=== PATIENT | male | born 1955 | race Caucasian/White ===

== ENCOUNTER 2023-10-21 14:00 | Outpatient (RCR) | payer MEDICARE, SELFPAY ==
--- NOTE | 2023-06-23 11:20 | URNOTE ---
Addendum entered by Marion Castellanos RN 06/23/23 11:26: Auth #[id number]. Original Note: Request received for authorization for Aranesp (Darbepoetin bear) ([id number]). Prior authorization is approved by [facility] on behalf of [facility] from date range: 06/22/2023 to 12/22/2023.
[2023-06-24 15:17] LABS: Basophils Percent Auto 2.3 % (0.0-3.0); Hemoglobin* 9.7 gm/dL (13.5-17.5); Immature Granulocytes Pct Auto 0.7 %; Lymphocytes Percent Auto 31.8 % (20-44); Mean Corpuscular HGB Conc 30 gm/dL (32-36); Mean Corpuscular Hemoglobin 26 pg (26-34); Mean Corpuscular Volume 87 fL (80-100); Neutrophils Percent Auto 44.2 % (42.0-72.0); Platelet Count* 177 K/uL (140-440); RDW Coefficient of Variation % 18.2 % (11.5-15.5); Red Blood Count 3.67 m/uL (4.30-5.90); White Blood Count* 4.28 K/uL (4.50-11.00)
[2023-06-24 15:19] VITALS: BP 120/77; PULSE 60; RESP 16; TEMP 35.8; O2SAT 100
[2023-06-24 15:31] LABS: Slide Review Reflex No
[2023-06-24] MEDS: DARBEPOETIN ALFA IN POLYSORBAT 500 MCG/ML SYRINGE SUBCUT (15:43)
[2023-07-01 14:34] VITALS: BP 136/74; PULSE 78; RESP 16; TEMP 36.3; O2SAT 100
[2023-07-01 14:54] LABS: Basophils Percent Auto 1.7 % (0.0-3.0); Hematocrit 27.4 % (37.0-53.0); Hemoglobin* 8.3 gm/dL (13.5-17.5); Immature Granulocytes Pct Auto 1.1 %; Lymphocytes Percent Auto 38.2 % (20-44); Mean Corpuscular HGB Conc 30 gm/dL (32-36); Mean Corpuscular Hemoglobin 26 pg (26-34); Mean Corpuscular Volume 86 fL (80-100); Monocytes Percent Auto 21.9 % (0.0-11.0); Neutrophils Percent Auto 37.1 % (42.0-72.0); Platelet Count* 177 K/uL (140-440); Red Blood Count 3.17 m/uL (4.30-5.90); White Blood Count* 3.56 K/uL (4.50-11.00)
[2023-07-01 15:26] LABS: Slide Review Reflex Yes
[2023-07-01 15:28] LABS: Slide Review Acceptable Review (Acceptable)
--- NOTE | 2023-07-01 15:46 | ONC.NURNOTE ---
Patient here for labs. HBG 8.3. Ordered 1 unit irradiated blood for tomorrow per parameters of Dr. Clark. Faxed labs to Dr. Clark.
[2023-07-02 13:25] VITALS: BP 128/47; PULSE 59; RESP 22; TEMP 36.3; O2SAT 100
[2023-07-02 13:43] VITALS: BP 112/56; PULSE 54; RESP 20; TEMP 36.8; O2SAT 100
[2023-07-02 14:28] VITALS: BP 121/63; PULSE 54; RESP 20; TEMP 36.4; O2SAT 100
[2023-07-02 15:30] VITALS: BP 144/63; PULSE 54; RESP 20; TEMP 35.9; O2SAT 100
[2023-07-02 16:05] VITALS: BP 127/55; PULSE 54; RESP 24; TEMP 36.2; O2SAT 100
[2023-07-08 15:31] LABS: Basophils Percent Auto 1.7 % (0.0-3.0); Hematocrit 27.5 % (37.0-53.0); Hemoglobin* 8.6 gm/dL (13.5-17.5); Lymphocytes Percent Auto 34.7 % (20-44); Mean Corpuscular HGB Conc 31 gm/dL (32-36); Mean Corpuscular Hemoglobin 27 pg (26-34); Mean Corpuscular Volume 86 fL (80-100); Monocytes Percent Auto 23.1 % (0.0-11.0); Neutrophils Percent Auto 39.5 % (42.0-72.0); Platelet Count* 142 K/uL (140-440); RDW Coefficient of Variation % 16.9 % (11.5-15.5); Red Blood Count 3.21 m/uL (4.30-5.90); White Blood Count* 3.03 K/uL (4.50-11.00)
[2023-07-08 15:35] LABS: Slide Review Reflex No
--- NOTE | 2023-07-08 15:41 | ONC.NURNOTE ---
Notified pt of Hgb 8.6 and need for 1unit PRBC transfsion tomorrow. Order placed for irradiated blood; BBK updated. Pt scheduled to come at 1300.
[2023-07-09 13:02] VITALS: BP 120/64; PULSE 70; RESP 17; TEMP 37.1; O2SAT 100
[2023-07-09 13:26] VITALS: BP 120/64; PULSE 70; RESP 24; TEMP 37.1; O2SAT 100
[2023-07-09 13:40] VITALS: BP 114/60; PULSE 60; RESP 24; TEMP 36.9; O2SAT 100
--- NOTE | 2023-07-09 14:05 | ONC.NURNOTE ---
Spoke with Dr. Clark's nurse at [facility]. 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
[2023-07-09 14:20] VITALS: BP 109/50; PULSE 58; RESP 14; TEMP 36.1; O2SAT 100
[2023-07-09 15:25] VITALS: BP 122/56; PULSE 62; RESP 15; TEMP 36.1; O2SAT 94
[2023-07-09 16:00] VITALS: BP 120/50; PULSE 60; RESP 14; TEMP 36.1; O2SAT 94
[2023-07-15 14:52] LABS: Basophils Percent Auto 1.9 % (0.0-3.0); Hematocrit 29.2 % (37.0-53.0); Hemoglobin* 9.2 gm/dL (13.5-17.5); Immature Granulocytes Pct Auto 0.9 %; Lymphocytes Percent Auto 35.3 % (20-44); Mean Corpuscular HGB Conc 32 gm/dL (32-36); Mean Corpuscular Hemoglobin 27 pg (26-34); Mean Corpuscular Volume 87 fL (80-100); Monocytes Percent Auto 22.2 % (0.0-11.0); Neutrophils Percent Auto 39.7 % (42.0-72.0); Platelet Count* 187 K/uL (140-440); RDW Coefficient of Variation % 15.8 % (11.5-15.5); Red Blood Count 3.37 m/uL (4.30-5.90)
[2023-07-15 15:11] LABS: Slide Review Reflex Yes
[2023-07-15 15:12] LABS: Slide Review Acceptable Review (Acceptable)
--- NOTE | 2023-07-16 09:04 | PC.NURSE ---
Late Entry: Pt was present at [facility] on 07/15/2023 for labs. Pt notified of results. No blood transfusion needed. Wednesday appt cancelled.
[2023-07-22 14:58] LABS: Eosinophils Percent Auto 0.3 % (0.0-7.0); Hematocrit 24.8 % (37.0-53.0); Immature Granulocytes Pct Auto 1.2 %; Lymphocytes Percent Auto 35.2 % (20-44); Mean Corpuscular HGB Conc 32 gm/dL (32-36); Mean Corpuscular Hemoglobin 27 pg (26-34); Mean Corpuscular Volume 86 fL (80-100); Monocytes Percent Auto 26.2 % (0.0-11.0); Neutrophils Percent Auto 35.1 % (42.0-72.0); Platelet Count* 191 K/uL (140-440); RDW Coefficient of Variation % 15.7 % (11.5-15.5); Red Blood Count 2.89 m/uL (4.30-5.90); White Blood Count* 3.47 K/uL (4.50-11.00)
[2023-07-22 15:14] LABS: Hemoglobin* 7.9 gm/dL (13.5-17.5); Slide Review Reflex Yes
[2023-07-22 15:15] LABS: Slide Review Acceptable Review (Acceptable)
[2023-07-23] VITALS (10 sets, daily range): BP systolic 93–127; BP diastolic 48–71; PULSE 53–69; RESP 14–16; TEMP 36.1–36.9; O2SAT 98–100
[2023-07-29 15:18] LABS: Basophils Percent Auto 1.5 % (0.0-3.0); Hematocrit 28.7 % (37.0-53.0); Hemoglobin* 9.1 gm/dL (13.5-17.5); Immature Granulocytes Pct Auto 1.5 %; Lymphocytes Percent Auto 42.2 % (20-44); Mean Corpuscular HGB Conc 32 gm/dL (32-36); Mean Corpuscular Hemoglobin 27 pg (26-34); Mean Corpuscular Volume 85 fL (80-100); Monocytes Percent Auto 22.8 % (0.0-11.0); Platelet Count* 155 K/uL (140-440); RDW Coefficient of Variation % 15.4 % (11.5-15.5); Red Blood Count 3.36 m/uL (4.30-5.90)
[2023-07-29 16:20] LABS: Slide Review Reflex Yes
[2023-07-29 16:21] LABS: White Blood Count* 2.39 K/uL (4.50-11.00)
[2023-07-29 16:29] LABS: Slide Review Acceptable Review (Acceptable)
[2023-08-05 14:42] LABS: Basophils Percent Auto 1.4 % (0.0-3.0); Hematocrit 25.7 % (37.0-53.0); Hemoglobin* 8.2 gm/dL (13.5-17.5); Immature Granulocytes Pct Auto 1.8 %; Lymphocytes Percent Auto 47.7 % (20-44); Mean Corpuscular HGB Conc 32 gm/dL (32-36); Mean Corpuscular Hemoglobin 27 pg (26-34); Mean Corpuscular Volume 85 fL (80-100); Monocytes Percent Auto 19.8 % (0.0-11.0); Neutrophils Percent Auto 29.3 % (42.0-72.0); Platelet Count* 149 K/uL (140-440); RDW Coefficient of Variation % 15.4 % (11.5-15.5); Red Blood Count 3.01 m/uL (4.30-5.90); White Blood Count* 2.83 K/uL (4.50-11.00)
[2023-08-05 15:07] LABS: Slide Review Acceptable Review (Acceptable); Slide Review Reflex Yes
[2023-08-06 11:41] VITALS: BP 125/69; PULSE 66; RESP 16; TEMP 36.6; O2SAT 99
[2023-08-06 12:17] VITALS: BP 125/69; PULSE 66; RESP 16; TEMP 36.6; O2SAT 99
[2023-08-06 12:38] VITALS: BP 116/50; PULSE 60; RESP 24; TEMP 36.3; O2SAT 100
[2023-08-06 13:23] VITALS: BP 126/82; PULSE 60; RESP 16; TEMP 36.8; O2SAT 100
[2023-08-06 14:39] VITALS: BP 119/53; PULSE 58; RESP 20; TEMP 36.8; O2SAT 100
[2023-08-06 15:02] VITALS: BP 122/72; PULSE 61; RESP 18; TEMP 36.8; O2SAT 100
--- NOTE | 2023-08-12 15:26 | ONC.NURNOTE ---
Patient did not show for lab appointment today. Called patient and he stated that he is in the hospital at [facility] in [place]. He plans to come in next and asked if we can make him this appointment. This was completed. Patient asked if he could come in early next week if needed. Fitness Services Manager stated that if it is an additional lab for next week, we would need a one time order but if it is replacing the appointment for , we could try and accommodate this. Patient verbally understood and stated he would keep us updated.
[2023-08-19 15:47] LABS: Basophils Percent Auto 1.1 % (0.0-3.0); Hematocrit 30.2 % (37.0-53.0); Hemoglobin* 9.7 gm/dL (13.5-17.5); Immature Granulocytes Pct Auto 3.4 %; Lymphocytes Percent Auto 44.7 % (20-44); Mean Corpuscular HGB Conc 32 gm/dL (32-36); Mean Corpuscular Hemoglobin 27 pg (26-34); Mean Corpuscular Volume 85 fL (80-100); Monocytes Percent Auto 20.6 % (0.0-11.0); Neutrophils Percent Auto 30.2 % (42.0-72.0); Platelet Count* 127 K/uL (140-440); RDW Coefficient of Variation % 14.6 % (11.5-15.5); Red Blood Count 3.56 m/uL (4.30-5.90); White Blood Count* 2.62 K/uL (4.50-11.00)
[2023-08-19 15:48] LABS: Slide Review Reflex Yes
--- NOTE | 2023-08-19 16:00 | ONC.NURNOTE ---
Patient called with lab results. No need for transfusion tomorrow and patient aware. Labs were faxed to Dr. Clark. Patient scheduled next for more labs.
[2023-08-19 16:55] LABS: Slide Review Acceptable Review (Acceptable)
[2023-08-26 14:43] LABS: Basophils Percent Auto 1.2 % (0.0-3.0); Hematocrit 26.6 % (37.0-53.0); Hemoglobin* 8.6 gm/dL (13.5-17.5); Lymphocytes Percent Auto 44.7 % (20-44); Mean Corpuscular HGB Conc 32 gm/dL (32-36); Mean Corpuscular Hemoglobin 27 pg (26-34); Mean Corpuscular Volume 85 fL (80-100); Monocytes Percent Auto 28.5 % (0.0-11.0); Neutrophils Percent Auto 23.6 % (42.0-72.0); Platelet Count* 126 K/uL (140-440); RDW Coefficient of Variation % 14.4 % (11.5-15.5); Red Blood Count 3.14 m/uL (4.30-5.90); White Blood Count* 2.53 K/uL (4.50-11.00)
[2023-08-26 15:21] LABS: Slide Review Reflex No
--- NOTE | 2023-08-26 15:48 | ONC.NURNOTE ---
Faxed lab results to Dr. Clark. Ordered 1 unit of irradiated packed red blood cells. Called patient with results and plan. MENU PLANNER reviewed hospitalization from 2 weeks ago at [facility] and no concerns with moving forward with transfusion tomorrow.
[2023-08-27 13:17] VITALS: BP 113/60; PULSE 61; RESP 16; TEMP 36.1; O2SAT 100
[2023-08-27 13:34] VITALS: BP 113/60; PULSE 61; RESP 18; TEMP 36.1; O2SAT 100
[2023-08-27 13:50] VITALS: BP 103/47; PULSE 61; RESP 16; TEMP 36.7; O2SAT 100
[2023-08-27 14:35] VITALS: BP 107/51; PULSE 54; RESP 18; TEMP 36.2; O2SAT 100
[2023-08-27 15:56] VITALS: BP 116/63; PULSE 52; RESP 16; TEMP 36.1
[2023-08-27 16:25] VITALS: BP 118/64; PULSE 53; RESP 18; TEMP 36.6; O2SAT 100
--- NOTE | 2023-08-27 16:39 | ONC.NURNOTE ---
Pt chose to leave 30 min after transfusion completed. Reviewed recent policy change recommending 1 hr monitoring following completion of blood transfusion. Pt verbalizes understanding and chooses to leave 30 min after, citing that when he had transfusions at [facility], he was able to leave immediately when blood finished.
[2023-09-02 14:55] LABS: Basophils Percent Auto 1.6 % (0.0-3.0); Hematocrit 27.5 % (37.0-53.0); Hemoglobin* 8.8 gm/dL (13.5-17.5); Immature Granulocytes Pct Auto 2.4 %; Lymphocytes Percent Auto 43.3 % (20-44); Mean Corpuscular HGB Conc 32 gm/dL (32-36); Mean Corpuscular Hemoglobin 27 pg (26-34); Mean Corpuscular Volume 85 fL (80-100); Monocytes Percent Auto 26.7 % (0.0-11.0); Platelet Count* 76 K/uL (140-440); RDW Coefficient of Variation % 14.3 % (11.5-15.5); Red Blood Count 3.25 m/uL (4.30-5.90); White Blood Count* 2.47 K/uL (4.50-11.00)
[2023-09-02 15:00] LABS: Slide Review Reflex No
--- NOTE | 2023-09-02 16:26 | ONC.NURNOTE ---
patient called with results of cbc. he will be in tomorrow for 1 u Irr. PRBC. type and crossed today.
[2023-09-03 13:15] VITALS: BP 107/72; PULSE 65; RESP 16; TEMP 36.8; O2SAT 100
[2023-09-03 13:33] VITALS: BP 107/72; PULSE 66; RESP 16; TEMP 36.8; O2SAT 100
[2023-09-03 13:45] VITALS: BP 120/51; PULSE 60; RESP 18; TEMP 37.1
[2023-09-03 13:54] VITALS: BP 113/67; PULSE 63; RESP 16; TEMP 36.9; O2SAT 100
[2023-09-03 15:29] VITALS: BP 120/51; PULSE 57; RESP 18; TEMP 36.6
[2023-09-03 15:44] VITALS: BP 128/68; PULSE 60; RESP 18; TEMP 36.6; O2SAT 100
--- NOTE | 2023-09-03 15:58 | ONC.NURNOTE ---
Patient refuses to wait the 1 hour post transfusion stating he doesn't have to wait in [place] at all. He waited 20 mins post transfusion
[2023-09-08 15:01] VITALS: BP 129/67; PULSE 71; RESP 22; O2SAT 100
[2023-09-08 15:09] LABS: Basophils Percent Auto 0.8 % (0.0-3.0); Hematocrit 26.1 % (37.0-53.0); Hemoglobin* 8.5 gm/dL (13.5-17.5); Immature Granulocytes Pct Auto 1.9 %; Lymphocytes Percent Auto 55.2 % (20-44); Mean Corpuscular HGB Conc 33 gm/dL (32-36); Mean Corpuscular Hemoglobin 27 pg (26-34); Mean Corpuscular Volume 84 fL (80-100); Monocytes Percent Auto 24.9 % (0.0-11.0); Neutrophils Percent Auto 17.2 % (42.0-72.0); Platelet Count* 58 K/uL (140-440); RDW Coefficient of Variation % 14.3 % (11.5-15.5); Red Blood Count 3.12 m/uL (4.30-5.90); White Blood Count* 2.61 K/uL (4.50-11.00)
--- NOTE | 2023-09-08 15:50 | ONC.NURNOTE ---
Called patient with lab results. Patient will come on 09/09 at 11:45 fo 1 unit irradiated blood. This was ordered. Faxed results to Dr. Clark.
[2023-09-08 16:26] LABS: Slide Review Reflex Yes
[2023-09-16 14:39] LABS: Basophils Percent Auto 1.2 % (0.0-3.0); Hemoglobin* 10.1 gm/dL (13.5-17.5); Immature Granulocytes Pct Auto 5.8 %; Lymphocytes Percent Auto 28.6 % (20-44); Mean Corpuscular HGB Conc 33 gm/dL (32-36); Mean Corpuscular Hemoglobin 28 pg (26-34); Mean Corpuscular Volume 85 fL (80-100); Monocytes Percent Auto 33.2 % (0.0-11.0); Neutrophils Percent Auto 31.2 % (42.0-72.0); Platelet Count* 83 K/uL (140-440); RDW Coefficient of Variation % 15.2 % (11.5-15.5); Red Blood Count 3.67 m/uL (4.30-5.90); White Blood Count* 3.43 K/uL (4.50-11.00)
[2023-09-16 15:04] LABS: Slide Review Reflex Yes
[2023-09-16 15:05] LABS: Slide Review Acceptable Review (Acceptable)
--- NOTE | 2023-09-16 15:43 | ONC.NURNOTE ---
Patient in clinic today for Hgb check. Hgb resulted at 10.1. RN called Josh with his results and to update him that he will not need a transfusion tomorrow. Patient not currently scheduled for next week. RN confirmed patient wants labs on with possible blood on Wednesday. RN added patient to schedule for 09/22 and 09/23. Lab results printed and faxed to Dr. Clark.
[2023-09-23 14:53] LABS: Basophils Percent Auto 1.1 % (0.0-3.0); Hematocrit 29.3 % (37.0-53.0); Hemoglobin* 9.5 gm/dL (13.5-17.5); Immature Granulocytes Pct Auto 6.3 %; Lymphocytes Percent Auto 11.1 % (20-44); Mean Corpuscular HGB Conc 32 gm/dL (32-36); Mean Corpuscular Hemoglobin 28 pg (26-34); Mean Corpuscular Volume 85 fL (80-100); Monocytes Percent Auto 57.4 % (0.0-11.0); Neutrophils Percent Auto 24.1 % (42.0-72.0); Platelet Count* 61 K/uL (140-440); RDW Coefficient of Variation % 15.2 % (11.5-15.5); Red Blood Count 3.46 m/uL (4.30-5.90)
[2023-09-23 15:35] LABS: Slide Review Reflex No
--- NOTE | 2023-09-23 16:04 | ONC.NURNOTE ---
Addendum entered by Janet Carroll RN 09/23/23 16:07: Pt notified of labs today. Original Note: Labs faxed to hematology at [place]. No transfusion needed on 09/24/23.
[2023-09-30 14:51] LABS: Basophils Percent Auto 1.1 % (0.0-3.0); Hematocrit 24.6 % (37.0-53.0); Immature Granulocytes Pct Auto 6.1 %; Lymphocytes Percent Auto 45.6 % (20-44); Mean Corpuscular HGB Conc 33 gm/dL (32-36); Mean Corpuscular Hemoglobin 27 pg (26-34); Mean Corpuscular Volume 84 fL (80-100); Monocytes Percent Auto 33.6 % (0.0-11.0); Neutrophils Percent Auto 13.6 % (42.0-72.0); Platelet Count* 65 K/uL (140-440); RDW Coefficient of Variation % 15.7 % (11.5-15.5); Red Blood Count 2.94 m/uL (4.30-5.90); White Blood Count* 3.75 K/uL (4.50-11.00)
[2023-09-30 15:18] LABS: Slide Review Reflex Yes
[2023-09-30 15:19] LABS: Slide Review Acceptable Review (Acceptable)
--- NOTE | 2023-09-30 16:25 | ONC.NURNOTE ---
Called patient to update him that his Hgb today is 8.0, per his orders he needs 2 units of blood tomorrow. Patient's appt time moved to 10 am to accommodate the 2nd unit. Patient verbalized understanding. Lab results faxed to Dr. Clark.
[2023-10-01] VITALS (10 sets, daily range): BP systolic 104–123; BP diastolic 47–68; PULSE 63–70; RESP 14–24; TEMP 36.6–37; O2SAT 96–99
[2023-10-01] MEDS: 0.9 % SODIUM CHLORIDE 250 ml IV (10:20)
[2023-10-07 15:45] LABS: Basophils Percent Auto 1.2 % (0.0-3.0); Hematocrit 28.2 % (37.0-53.0); Hemoglobin* 9.2 gm/dL (13.5-17.5); Immature Granulocytes Pct Auto 7.4 %; Lymphocytes Percent Auto 22.7 % (20-44); Mean Corpuscular HGB Conc 33 gm/dL (32-36); Mean Corpuscular Hemoglobin 28 pg (26-34); Mean Corpuscular Volume 86 fL (80-100); Neutrophils Percent Auto 36.7 % (42.0-72.0); Platelet Count* 53 K/uL (140-440); RDW Coefficient of Variation % 14.6 % (11.5-15.5); White Blood Count* 2.56 K/uL (4.50-11.00)
[2023-10-07 16:03] LABS: Slide Review Reflex Yes
[2023-10-07 20:13] LABS: Slide Review Acceptable Review (Acceptable)
[2023-10-14 15:42] LABS: Hematocrit 26.1 % (37.0-53.0); Hemoglobin* 8.3 gm/dL (13.5-17.5); Mean Corpuscular HGB Conc 32 gm/dL (32-36); Mean Corpuscular Hemoglobin 27 pg (26-34); Mean Corpuscular Volume 86 fL (80-100); RDW Coefficient of Variation % 15.4 % (11.5-15.5); Red Blood Count 3.03 m/uL (4.30-5.90); White Blood Count* 3.46 K/uL (4.50-11.00)
[2023-10-14 15:46] LABS: Platelet Count* 48 K/uL (140-440); Slide Review Reflex Yes
--- NOTE | 2023-10-14 15:49 | ONC.NURNOTE ---
Results called to patient. Faxed labs to MD. Patient will report tomorrow to med surg at 10am for blood transfusion.
[2023-10-14 16:20] LABS: Slide Review Req Man Differential (Acceptable)
[2023-10-14 16:24] LABS: Total Cells Counted 100
[2023-10-14 16:26] LABS: Neutrophils Percent Auto 0.6 % (42.0-72.0)
[2023-10-14 16:27] LABS: Macrocytosis Slight (Absent); Polychromasia Slight (Absent)
[2023-10-15 10:28] VITALS: BP 132/49; PULSE 53; RESP 20; TEMP 36.4; O2SAT 100
[2023-10-15] MEDS: 0.9 % SODIUM CHLORIDE 250 ml IV (10:29)
[2023-10-15 10:57] VITALS: BP 129/48; PULSE 58; RESP 20; TEMP 36.5; O2SAT 100
[2023-10-15 11:43] VITALS: BP 133/50; PULSE 58; RESP 20; TEMP 36.3; O2SAT 100
[2023-10-15 12:30] VITALS: BP 129/45; PULSE 61; RESP 20; TEMP 36.3; O2SAT 100
[2023-10-15 13:27] VITALS: BP 134/51; PULSE 63; RESP 20; TEMP 36.2; O2SAT 100
--- NOTE | 2023-10-15 14:26 | PC.NURSE ---
Pt on M/S for blood transfusion. Pt?s VSS; no infusion reaction. Pt chronically on oxygen and was on 6 Liters during transfusion. Pt?s son picked up Pt around 1430. ?
--- NOTE | 2023-10-21 15:48 | ONC.NURNOTE ---
Addendum entered by Janet Carroll RN 10/21/23 16:00: Spoke to [facility]-requested updated MD office note and informed them current order for blood draw and blood transfusions will 11/16/23. Original Note: Pt did not show up for blood draw today, senior medical writer called pt and he is currently hospitalized and will not be receiving a blood transfusion tomorrow in [facility]. Pt on schedule for next week for possible blood transfusion.
--- NOTE | 2023-10-27 10:04 | ONC.NURNOTE ---
Commercial Analyst took message off of voicemail, Josh stated that he enrolled in hospice and needed to cancel all of his appointments. cancelled his appointments.
== END 2023-12-21 23:59 | disposition home or self-care (01) ==
LOC: CCIC 14:00
PROVIDERS: PCP Family Medicine; Referring Provider Family Medicine; Visit Provider Clinical Nurse Specialist
DX: C93.10 Chronic myelomonocytic leukemia not having achieved remission (principal); D63.0 Anemia in neoplastic disease
CPT/HCPCS: 36415; 36430; 85025; 86850; 86900; 86901; 86922; 96372; J0881; J7050; P9016